=== PATIENT | female | born 2000 ===

== ENCOUNTER → 2018-03-28 | Outpatient (CLI) | payer OTHER | END | disposition home or self-care (01) | LOC: LAB 12:09 → LAB SHORT 12:09 | DX: R30.0 Dysuria (principal) | CPT/HCPCS: 87077; 87086; 87186 ==

== ENCOUNTER → 2018-04-07 | Outpatient (CLI) | payer OTHER ==
[2018-04-08 11:22] LABS: Candida species (DNA Probe) Negative (NEGATIVE); G. vaginalis (DNA Probe) Positive (NEGATIVE); T. vaginalis (DNA Probe) Negative (NEGATIVE)
== END ==
LOC: LAB 08:36 → LAB SHORT 08:36
PROVIDERS: Nurse Practitioner Adult Health
DX: N76.0 Acute vaginitis (principal)
CPT/HCPCS: 87480; 87510; 87660